=== PATIENT | female | born 1995 | race Two or more races ===

== ENCOUNTER 2023-08-05 17:11 | Emergency (ER) | payer SELFPAY ==
[~2023-08-05] VITALS: Ht 157.5 cm; Wt 72.7 kg
[2023-08-05 17:19] VITALS: TEMP 98
[2023-08-05 17:53] LABS: BASOPHILS % (AUTO) 0.3 % (0.0-2.0); EOSINOPHILS % (AUTO) 1.4 % (1.0-6.0); HEMATOCRIT 42.3 % (36-46); HEMOGLOBIN 14.8 g/dL (12.0-16.0); LYMPHOCYTES # (AUTO) 3.2 K/uL (1.0-4.8); LYMPHOCYTES % (AUTO) 33.7 % (22.0-44.0); MEAN CORPUSCULAR HEMOGLOBIN 31.5 pg (26.0-34.0); MEAN CORPUSCULAR HGB CONC 35.1 G/dL (31.0-37.0); MEAN CORPUSCULAR VOLUME 90 fL (80-100); MONOCYTES # (AUTO) 0.4 K/uL (0.1-1.0); MONOCYTES % (AUTO) 4.1 % (2.0-9.0); NEUTROPHILS # (AUTO) 5.8 K/uL (1.8-7.7); NEUTROPHILS % (AUTO) 60.5 % (40.0-70.0); PLATELET COUNT (AUTO) 246 K/uL (150-450); RED BLOOD CELL COUNT(AUTO) 4.71 MIL/uL (4.00-5.20); RED CELL DISTRIBUTION WIDTH 13.6 % (11.5-14.5); WHITE BLOOD COUNT (AUTO) 9.6 K/uL (4.5-11.0)
[2023-08-05 18:03] LABS: ANION GAP 13 mmol/L (8-16); CARBON DIOXIDE 25 mmol/L (22-29); CHLORIDE 101 mmol/L (98-107); CREATININE 0.94 mg/dL (0.60-1.30); GLUCOSE,RANDOM 120 mg/dL (70-110); POTASSIUM 3.1 mmol/L (3.5-5.1); SODIUM SERUM 139 mmol/L (136-145); UREA NITROGEN, BLOOD 8 mg/dL (7-18)
[2023-08-05 18:04] LABS: GLOMERULAR FILTR. RATE CALC > 60 mL/min (>60)
[2023-08-05] MEDS: ONDANSETRON HCL 4 MG/2 ML VIAL IVP ONE (18:12)
[2023-08-05 18:21] LABS: HCG,QUANTITATIVE 1 mIU/mL (0-6)
[2023-08-05] MEDS: ACETAMINOPHEN 500 MG TABLET PO ONE (19:48)
[2023-08-05] MEDS: SODIUM CHLORIDE 0.9% 1,000 ML IV ONE (19:48)
[2023-08-05] MEDS: POTASSIUM CHLORIDE 20 MEQ ER TABLET PO ONE (19:48)
[2023-08-05] MEDS: KETOROLAC TROMETHAMINE 30 MG/ML VIAL IVP ONE (19:49)
[2023-08-05 20:20] VITALS: BP 101/64; PULSE 81; RESP 18
[2023-08-05] MEDS: ONDANSETRON HCL 4 MG TABLET PO ONE (20:37)
[2023-08-05] MEDS ORDERED: ACET-66 PO (20:39)
[2023-08-05] MEDS ORDERED: ONDA-104 PO (20:39)
[2023-08-05] MEDS ORDERED: OMEP20 PO (20:39)
== END 2023-08-05 20:58 | disposition home or self-care (01) ==
LOC: EMS 17:13
DX: R11.10 Vomiting, unspecified (principal); R42 Dizziness and giddiness; E87.6 Hypokalemia; F17.210 Nicotine dependence, cigarettes, uncomplicated
CPT/HCPCS: 99284; 96374; 96361; 96375; 80048; 84702; 85025; 36415; 93005; J1885; J2405; Q0162; J7030